=== PATIENT | male | born 1945 | race Two or more races ===

== ENCOUNTER 2017-01-29 10:41 | Emergency (ER) | payer MEDICARE, OTHER ==
[~2017-01-29] VITALS: Ht 157.5 cm; Wt 74.8 kg
[~2017-01-29 10:41] MED LIST: FLOMAX0.4 MG ORAL; NITROFURANTOIN100 M2 ORAL
[2017-01-29 11:04] VITALS: BP 145/81
[2017-01-29 11:41] LABS: APPEARANCE,URINE CLEAR; KETONES,URINE NEGATIVE (NEGATIVE); LEUKOCYTE ESTERASE ,URINE NEGATIVE (NEGATIVE); NITRITE,URINE NEGATIVE (NEGATIVE); PH,URINE 6 (4.5-8.0); PROTEIN,URINE NEGATIVE (NEGATIVE); UROBILINOGEN,URINE NORMAL MG/DL (0.0-1.0)
[2017-01-29 11:52] LABS: BACTERIA,URINE OCCASIONAL /HPF; SQUAMOUS EPITHELIAL CELL,UR OCCASIONAL /LPF (NONE/OCC); WBC,URINE 0-2 /HPF (0 - 0)
[2017-01-29 12:25] VITALS: BP 134/73
--- NOTE | 2017-01-29 12:36 | Emergency Room Report ---
History of Present Illness General Chief Complaint: Male Urogenital Problems Source: Patient Present Illness HPI 71YOM walk-in with acute suprapubic pain, difficulty urinating this morning History of BPH Missed one dose of flomax Has had jasso previously Denies nausea/vomiting, abd pain, back pain, diarrhea Allergies: Coded Allergies: No Known Allergies (Unverified , 12/08/12) Patient History Past Medical History: other - BPH Past Surgical History: none Social History: Denies: smoking, alcohol use, drug use Immunizations: UTD Reviewed Nursing Documentation: PMH: Agreed, PSxH: Agreed Nursing Documentation-PMH Past Medical History: No History, Except For Hx Cardiac Problems: No - BPH/CVA Hx Dialysis: No - prostate Review of Systems All Other Systems: negative except mentioned in HPI Physical Exam Vital Signs Date Time Temp Pulse Resp B/P (MAP) Pulse Ox O2 Delivery O2 Flow Rate FiO2 01/29/17 10:54 98.1 90 18 170/96 98 Room Air Sp02 EP Interpretation: reviewed, normal General Appearance: normal inspection, well appearing, no apparent distress, alert, GCS 15, non-toxic Head: normocephalic, atraumatic Eyes: bilateral eye PERRL, bilateral eye EOMI ENT: normal ENT inspection, hearing grossly normal, normal voice Neck: normal inspection, full range of motion, supple, no bony tend Respiratory: normal inspection, lungs clear, normal breath sounds, no respiratory distress, no retraction, no wheezing Cardiovascular #1: regular rate, rhythm, no edema Gastrointestinal: normal inspection, normal bowel sounds, soft, no guarding, no hernia, other - Mild suprapubic ttp Genitourinary: no CVA tenderness Musculoskeletal: normal inspection, back normal, normal range of motion, Rocio' s Sign negative Neurologic: normal inspection, alert, oriented x3, responsive, tobacco acreage measurer III-XII nml as tested, speech normal Psychiatric: normal inspection, judgement/insight normal, mood/affect normal Skin: normal inspection, normal color, no rash Medical Decision Making Diagnostic Impression: Primary Impression: Acute retention of urine Additional Impression: BPH (benign prostatic hyperplasia) Qualified Codes: N40.1 - Benign prostatic hyperplasia with lower urinary tract symptoms; R33.8 - Other retention of urine ER Course Acute urinary retention Improved symptoms with jasso placement UA negative for UTI DC home with jasso, leg bag Advised Urology followup for removal after further re-evaluation Last Vital Signs Date Time Temp Pulse Resp B/P (MAP) Pulse Ox O2 Delivery O2 Flow Rate FiO2 01/29/17 12:25 98.5 71 19 134/73 95 Room Air Status: improved Disposition: HOME, SELF-CARE Condition: Improved Referrals: [facility],REFERRING (PCP) Patient Instructions: Acute Urinary Retention, Male, [id number] Additional Instructions: - Follow up with Urologist in 1-2 weeks for jasso removal LOR ROUSE M.D. Jan 29, 2017 12:36
== END 2017-01-29 12:25 | disposition home or self-care (01) ==
LOC: EMR 11:13
DX: N40.1 Benign prostatic hyperplasia with lower urinary tract symptoms (principal); R33.8 Other retention of urine
CPT/HCPCS: 51702; 81003; 99283

== ENCOUNTER 2017-01-30 00:43 | Emergency (ER) | payer MEDICARE, OTHER ==
[~2017-01-30] VITALS: Ht 157.5 cm; Wt 74.8 kg
[2017-01-30 01:00] VITALS: BP 154/74
[2017-01-30 01:31] VITALS: BP 154/74
--- NOTE | 2017-01-30 02:49 | Emergency Room Report ---
History of Present Illness General Chief Complaint: Male Urogenital Problems Source: Patient Present Illness HPI Patient is 71-year-old male who presented after increased hematuria. Patient had recently had De Jesus catheter placed for urinary retention. The patient become concerned that he began having some blood in his urine. Patient denied any fever. He reported having normal urine output. He denies any pain. Allergies: Coded Allergies: No Known Allergies (Unverified , 12/08/12) Patient History Reviewed Nursing Documentation: PMH: Agreed, PSxH: Agreed Nursing Documentation-PMH Hx Cardiac Problems: No - BPH/CVA Hx Dialysis: No - prostate Review of Systems All Other Systems: negative except mentioned in HPI Physical Exam Vital Signs Date Time Temp Pulse Resp B/P (MAP) Pulse Ox O2 Delivery O2 Flow Rate FiO2 01/30/17 00:46 97.5 65 18 154/74 98 Room Air General Appearance: well appearing, no apparent distress, alert, GCS 15 Head: normocephalic, atraumatic ENT: hearing grossly normal, normal voice Neck: full range of motion, supple Respiratory: no respiratory distress, speaking full sentences Cardiovascular #1: normal inspection Gastrointestinal: normal inspection, normal bowel sounds, non tender, soft Musculoskeletal: no calf tenderness Neurologic: normal inspection, alert, oriented x3, responsive, motor strength/ tone normal, normal gait, facial droop - left side Psychiatric: mood/affect normal Skin: no rash Medical Decision Making Diagnostic Impression: Primary Impression: De Jesus catheter problem ER Course Patient presented for hematuria.Differential diagnosis included was not limited to urinary tract infection, De Jesus catheter migration, renal cell carcinoma, bladder CA pyelonephritis among others. Last Vital Signs Date Time Temp Pulse Resp B/P (MAP) Pulse Ox O2 Delivery O2 Flow Rate FiO2 01/30/17 01:31 97.5 65 18 154/74 98 Room Air Status: improved Disposition: HOME, SELF-CARE Condition: Stable Patient Instructions: De Jesus Catheter Care, Adult [place] Jan 30, 2017 02:49
== END 2017-01-30 01:31 | disposition home or self-care (01) ==
LOC: EMR 00:59
DX: T83.9XXA Unspecified complication of genitourinary prosthetic device, implant and graft, initial encounter (principal); X58.XXXA Exposure to other specified factors, initial encounter; Y93.9 Activity, unspecified; Y92.9 Unspecified place or not applicable; Z86.73 Personal history of transient ischemic attack (TIA), and cerebral infarction without residual deficits; R29.810 Facial weakness
CPT/HCPCS: 51702; 99283

== ENCOUNTER 2017-02-04 08:05 | Emergency (ER) | payer MEDICARE, OTHER ==
[~2017-02-04] VITALS: Ht 162.6 cm; Wt 70.3 kg
--- NOTE | 2017-02-04 08:42 | Emergency Room Report ---
History of Present Illness General Chief Complaint: Male Urogenital Problems Source: Patient Present Illness HPI 71-year-old male, history of BPH, presenting with wanting De Jesus removed. Patient recently seen within the last week at [facility], had urinary retention, De Jesus was placed with successful drainage of urine. Patient states that now he wants the De Jesus out, states that it is uncomfortable, states that he has a urologist appointment but not for another month because he could not get onto to his insurance. He has no complaints at the moment Allergies: Coded Allergies: No Known Allergies (Unverified , 12/08/12) Patient History Past Medical History: see triage record Past Surgical History: none Pertinent Family History: none Reviewed Nursing Documentation: PMH: Agreed, PSxH: Agreed Nursing Documentation-PMH Hx Cardiac Problems: No - BPH/CVA Hx Dialysis: No - prostate Hx Cerebrovascular Accident: Yes Review of Systems All Other Systems: negative except mentioned in HPI Physical Exam Vital Signs Date Time Temp Pulse Resp B/P (MAP) Pulse Ox O2 Delivery O2 Flow Rate FiO2 02/04/17 08:12 97.7 68 20 142/77 99 Room Air Sp02 EP Interpretation: reviewed, normal General Appearance: normal inspection, well appearing, no apparent distress, alert, GCS 15, non-toxic Head: normocephalic, atraumatic Eyes: bilateral eye normal inspection, bilateral eye PERRL, bilateral eye EOMI ENT: normal ENT inspection, normal pharynx, normal voice, moist mucus membranes Neck: normal inspection, full range of motion, supple Respiratory: normal inspection, lungs clear, normal breath sounds, no respiratory distress, no retraction, no wheezing, speaking full sentences, chest symmetrical Cardiovascular #1: normal inspection, regular rate, rhythm, no edema, normal capillary refill Cardiovascular #2: 2+ radial (R), 2+ radial (L) Gastrointestinal: normal inspection, non tender, soft, non-distended, no guarding Genitourinary: no CVA tenderness, other - Urinary De Jesus in place Musculoskeletal: normal inspection, back normal, normal range of motion, non- tender Neurologic: normal inspection, alert, oriented x3, responsive, motor strength/ tone normal, sensory intact, normal gait, speech normal Psychiatric: normal inspection, judgement/insight normal, memory normal Skin: normal inspection, normal color, no rash, warm/dry, well hydrated, normal turgor Medical Decision Making Diagnostic Impression: Primary Impression: De Jesus catheter problem ER Course 71-year-old male wanting his De Jesus removed DDX: BPH, had urinary retention, now wants his De Jesus removed Plan: Remove De Jesus Voiding trial ER course: Patient has remained stable during ED stay. Able to urinate on his own without difficulty Disposition: Patient is to be discharged to home. Patient is instructed to follow up with urologist within one week Strict return precautions discussed with patient such as fever, chills, inability to urinate, nausea, vomiting, which may indicate severe illness. Patient verbalizes understanding and agrees with plan. Please note that this Emergency Department Report was dictated using [employer] technology software, occasionally this can lead to erroneous entry secondary to interpretation by the dictation equipment Last Vital Signs Date Time Temp Pulse Resp B/P (MAP) Pulse Ox O2 Delivery O2 Flow Rate FiO2 02/04/17 08:12 97.7 68 20 142/77 99 Room Air Disposition: HOME, SELF-CARE Condition: Improved Cece Wiseman M.D. Feb 04, 2017 08:42
[2017-02-04 08:58] VITALS: BP 152/79
== END 2017-02-04 08:57 | disposition home or self-care (01) ==
LOC: EMR 08:43
DX: T83.098A Other mechanical complication of other urinary catheter, initial encounter (principal); Y92.89 Other specified places as the place of occurrence of the external cause; Y84.6 Urinary catheterization as the cause of abnormal reaction of the patient, or of later complication, without mention of misadventure at the time of the procedure; N40.1 Benign prostatic hyperplasia with lower urinary tract symptoms; R33.8 Other retention of urine; Z86.73 Personal history of transient ischemic attack (TIA), and cerebral infarction without residual deficits
CPT/HCPCS: 99283

== ENCOUNTER 2019-03-03 22:05 | Emergency (ER) | payer MEDICARE, OTHER ==
[~2019-03-03] VITALS: Ht 165.1 cm; Wt 74.8 kg
[2019-03-03] MEDS ORDERED: BACLOFEN10 MG ORAL (22:22)
[2019-03-03] MEDS ORDERED: FOLGARD TABLET1 EAC1 PO (22:22)
[2019-03-03] MEDS ORDERED: DITROPAN XL5 MG ORAL (22:22)
[2019-03-03 22:25] VITALS: BP 120/58
[2019-03-03] MEDS ORDERED: HYDROcodone/Acetamin 5/325 tab ORAL ONE (23:15)
[2019-03-03] MEDS ORDERED: PHENAZOPYRIDIN200 MG ORAL (23:26)
--- NOTE | 2019-03-03 23:26 | Emergency Room Report ---
History of Present Illness General Chief Complaint: Male Urogenital Problems Source: Patient, Family Member Present Illness HPI This is 73-year-old male with a history of BPH. He also has urinary retention. He presents with chief complaint of urinary pain and leakage from the De Jesus. He has a chronic De Jesus in. He was at [place] today and had a 18 Swedish catheter placed. Now he has leaking around the catheter. He also painful urination. He has prescription for Cipro already. No nausea no vomiting. Pain is 8 out of 10. Worse with urination. Has spasm in that area. No obvious blood. Allergies: Coded Allergies: No Known Allergies (Unverified , 12/08/12) Patient History Past Medical History: see triage record, old chart reviewed Past Surgical History: other Pertinent Family History: none Social History: Denies: smoking Immunizations: other Reviewed Nursing Documentation: PMH: Agreed; PSxH: Agreed Nursing Documentation-PMH Hx Cardiac Problems: No - BPH/CVA Hx Hypertension: Yes Hx Dialysis: No - prostate Hx Cerebrovascular Accident: Yes Review of Systems Eye: Denies: eye pain, blurred vision ENT: Denies: ear pain, nose congestion, throat swelling Respiratory: Denies: cough, shortness of breath Cardiovascular: Denies: chest pain, palpitations Gastrointestinal: Denies: abdominal pain, diarrhea, nausea, vomiting Genitourinary: Reports: dysuria, retention Musculoskeletal: Denies: back pain, joint pain Skin: Denies: rash Neurological: Denies: headache, numbness Endocrine: Denies: increased thirst, increased urine Hematologic/Lymphatic: Denies: easy bruising All Other Systems: negative except mentioned in HPI Physical Exam Vital Signs Date Time Temp Pulse Resp B/P (MAP) Pulse Ox O2 Delivery O2 Flow Rate FiO2 03/03/19 22:11 97.3 74 16 120/58 (78) 96 Room Air Vitals normal Sp02 EP Interpretation: reviewed, normal General Appearance: well appearing, no apparent distress, alert Head: normocephalic, atraumatic Eyes: bilateral eye PERRL, bilateral eye EOMI ENT: hearing grossly normal, normal pharynx Neck: full range of motion, supple, no meningismus Respiratory: chest non-tender, lungs clear, normal breath sounds Cardiovascular #1: regular rate, rhythm, no murmur Gastrointestinal: normal bowel sounds, non tender, no mass, no organomegaly, no bruit, non-distended Genitourinary: other - Patient is uncircumcised. Catheter intact. Leakage around it. Musculoskeletal: back normal, normal range of motion, gait/station normal Psychiatric: mood/affect normal Medical Decision Making Diagnostic Impression: Primary Impression: De Jesus catheter problem Qualified Codes: T83.9XXA - Unspecified complication of genitourinary prosthetic device, implant and graft, initial encounter ER Course Patient with malfunction of his De Jesus catheter. Once the catheter was removed. There are sediments inside the catheter. This caused some mild blockage. A larger catheter placed. Patient tolerated seizure without any problem. Last Vital Signs Date Time Temp Pulse Resp B/P (MAP) Pulse Ox O2 Delivery O2 Flow Rate FiO2 03/03/19 22:25 97.3 89 16 120/58 96 Room Air Status: improved Disposition: HOME, SELF-CARE Condition: Stable Scripts Phenazopyridine Hcl* (PYRIDIUM*) 200 Mg Tablet 200 MG ORAL THREE TIMES A DAY, #14 TAB 0 Refills Prov: Rob Mojica MD 03/03/19 Referrals: [facility]/,REFERRING (PCP) Additional Instructions: Fill your Cipro prescription. Follow-up with your doctor in 7 days. Return if worse. Rob Mojica MD Mar 03, 2019 23:26
[2019-03-03 23:30] VITALS: BP 120/58
== END 2019-03-03 23:30 | disposition home or self-care (01) ==
LOC: EMR 22:17
DX: T83.9XXA Unspecified complication of genitourinary prosthetic device, implant and graft, initial encounter (principal); I10 Essential (primary) hypertension; Z86.73 Personal history of transient ischemic attack (TIA), and cerebral infarction without residual deficits; X58.XXXA Exposure to other specified factors, initial encounter; Y92.9 Unspecified place or not applicable
CPT/HCPCS: 51702; 99284